=== PATIENT | male | born 1950 | race Caucasian/White ===

== ENCOUNTER 2017-03-26 19:51 | Emergency (ER) | payer MEDICARE, OTHER ==
[~2017-03-26] VITALS: Ht 172.7 cm; Wt 99.4 kg
[2017-03-26 19:56] VITALS: BP 133/95
[2017-03-26] MEDS ORDERED: HYDR-569 PO (21:20)
[2017-03-26] MEDS ORDERED: NAPR-56 PO (21:20)
[2017-03-26] MEDS ORDERED: amox tr/potassium clavulanate 875/125mg TAB PO ONE (21:20)
[2017-03-26] MEDS ORDERED: AMOX-422 PO (21:20)
== END 2017-03-26 21:40 | disposition home or self-care (01) ==
LOC: ER 19:52
DX: K04.7 Periapical abscess without sinus (principal); K02.9 Dental caries, unspecified; L03.119 Cellulitis of unspecified part of limb; I10 Essential (primary) hypertension; Z98.890 Other specified postprocedural states
CPT/HCPCS: 99283

== ENCOUNTER 2018-05-23 07:16 | Emergency (ER) | payer MEDICARE ==
[~2018-05-23] VITALS: Ht 172.7 cm; Wt 98.0 kg
[~2018-05-23 07:16] MED LIST: HYDR-4383 PO
[2018-05-23 07:18] VITALS: BP 141/91
[2018-05-23] MEDS ORDERED: AMOX875T2 PO (08:07)
== END 2018-05-23 08:09 | disposition home or self-care (01) ==
LOC: ER 07:17
DX: K08.89 Other specified disorders of teeth and supporting structures (principal); I10 Essential (primary) hypertension; Z79.899 Other long term (current) drug therapy
CPT/HCPCS: 99283

== ENCOUNTER 2019-12-19 06:23 | Emergency (ER) | payer MEDICARE ==
[~2019-12-19] VITALS: Ht 172.7 cm; Wt 90.0 kg
[2019-12-19 06:41] VITALS: BP 158/100
[2019-12-19] MEDS ORDERED: PENI500T2 PO (06:46)
== END 2019-12-19 06:55 | disposition home or self-care (01) ==
LOC: ER 06:24
DX: K04.7 Periapical abscess without sinus (principal); I10 Essential (primary) hypertension; Z98.890 Other specified postprocedural states; Z72.89 Other problems related to lifestyle; Z79.899 Other long term (current) drug therapy
CPT/HCPCS: 99283

== ENCOUNTER 2021-02-01 06:40 | Emergency (ER) | payer MEDICARE ==
[~2021-02-01] VITALS: Ht 172.7 cm; Wt 89.0 kg
[2021-02-01 06:46] VITALS: BP 152/94
[2021-02-01] MEDS ORDERED: LIDOcaine 1% w/epiNEPHrine 1:200,000 30ml vial IJ ONE (07:15)
[2021-02-01] MEDS ORDERED: LIDOcaine 1% W/epiNEPHrine 1:200,000 10ml vial IJ ONE (07:15)
[2021-02-01] MEDS ORDERED: LIDOcaine 1% W/epiNEPHrine 1:100,000 20ml vial IJ ONE (07:35)
--- NOTE | 2021-02-01 07:51 | NUR ---
lido given to provider at bedside
[2021-02-01] MEDS ORDERED: DOXY100C43 PO (08:08)
[2021-02-01] MEDS ORDERED: MUPI22OI30 TOP (08:08)
== END 2021-02-01 08:21 | disposition home or self-care (01) ==
LOC: ER 06:40
DX: L02.31 Cutaneous abscess of buttock (principal); I10 Essential (primary) hypertension; Z72.89 Other problems related to lifestyle; Z79.2 Long term (current) use of antibiotics; Z79.899 Other long term (current) drug therapy
CPT/HCPCS: 10060; 99283

== ENCOUNTER 2023-12-21 10:17 | Inpatient (IN) | payer MEDICARE ==
[~2023-12-21] VITALS: Ht 170.2 cm; Wt 50.8 kg
[2023-12-21 10:45] LABS: BASOPHILS % (AUTO) 0.5 % (0-1); EOSINOPHILS # (AUTO) 0.3 X10'3 (0-0.9); EOSINOPHILS % (AUTO) 3.5 % (0-6); HEMOGLOBIN 13.7 g/dl (14.0-17.9); MEAN CORPUSCULAR HEMOGLOBIN 30.8 PG (27.0-31.0); MEAN CORPUSCULAR HGB CONC 33.3 g/dL (33.0-36.5); MEAN CORPUSCULAR VOLUME 92.3 FL (78-98); MONOCYTES % (AUTO) 12.5 % (2-12); NEUTROPHILS # (AUTO) 4.5 X10'3 (1.8-7.7); NEUTROPHILS % (AUTO) 57.5 % (42-75); PLATELET COUNT 258 X10'3 (140-440); RED BLOOD COUNT 4.44 X10'6 (4.70-6.10); RED CELL DISTRIBUTION WIDTH 13.3 % (11.5-14.5); WHITE BLOOD COUNT 7.8 X10'3 (4.5-11.0)
[2023-12-21 10:56] LABS: APTT 24 SECONDS (22-32); INR 1.1 INR; PROTHROMBIN TIME 11.4 SECONDS (9.0-12.0)
[2023-12-21 10:58] LABS: ANION GAP 7 (8-16); BLOOD UREA NITROGEN 26 MG/DL (7-18); BUN/CREATININE RATIO 24.8 (10.0-20.0); CALCIUM 8.4 MG/DL (8.5-10.1); CHLORIDE 101 MMOL/L (99-107); CREATININE 1.05 MG/DL (0.60-1.10); GLUCOSE 89 MG/DL (70-104); POTASSIUM 4.3 MMOL/L (3.5-5.1); SODIUM 136 MMOL/L (135-145); TOTAL CARBON DIOXIDE 28.2 MMOL/L (24-32); eCRCL 45 ML/MIN; eGFR 69 ML/MIN
[2023-12-21] MEDS: aspirin 81mg tab.chew PO ONE (11:13)
[2023-12-21] MEDS: clopidogrel 300mg tablet PO ONE (11:16)
[2023-12-21] MEDS ORDERED: iohexol 350MG/ML 100ml bottle IV ONE (11:21)
[2023-12-21] MEDS ORDERED: morphine 2 MG/ML inj. syringe IV PRN ×2 (12:40)
[2023-12-21] MEDS ORDERED: acetaminophen 325mg tablet PO PRN ×2 (12:40)
[2023-12-21] MEDS ORDERED: HYDROcodone/acetaminophen 10/325mg tab PO PRN (12:40)
[2023-12-21] MEDS ORDERED: bisacodyl 10mg suppository rectal RC PRN (12:40)
[2023-12-21] MEDS ORDERED: acetaminophen 650mg rectal suppository RC PRN (12:40)
[2023-12-21] MEDS ORDERED: diphenhydrAMINE 50 mg/ml inj IV PRN (12:40)
[2023-12-21] MEDS ORDERED: magnesium hydroxide 30ml (MOM) UD suspension PO PRN (12:40)
[2023-12-21] MEDS ORDERED: diphenhydrAMINE 25mg capsule PO PRN (12:40)
[2023-12-21] MEDS ORDERED: mag hydrox/Alum hydrox/simeth 30ml oral suspension PO PRN (12:40)
[2023-12-21] MEDS ORDERED: ondansetron/PF 4mg/2ml inj IV PRN (12:40)
[2023-12-21] MEDS ORDERED: ondansetron 4mg rapidly disintigrating tab PO PRN (12:40)
[2023-12-21] MEDS ORDERED: HYDROcodone/acetaminophen 5mg/325mg tablet PO PRN (12:40)
[2023-12-21] MEDS: normal saline 1000ml 1,000 ML IV SCH (13:38)
[2023-12-21 14:22] LABS: MAGNESIUM 1.9 MG/DL (1.5-2.4); PHOSPHORUS 3.5 MG/DL (2.3-4.5); THYROID STIMULATING HORMONE 7.99 ulU/ml (0.34-4.50)
[2023-12-21 14:38] LABS: HEMOGLOBIN A1C 5.9 % (4.5-6.2)
[2023-12-21 14:52] LABS: BILIRUBIN,URINE NEGATIVE (Neg); CLARITY,URINE CLEAR (Clear); COLOR,URINE YELLOW (Yellow); GLUCOSE, URINE NEGATIVE (Neg); KETONES,URINE NEGATIVE (Neg); LEUKOCYTE ESTERASE ,URINE NEGATIVE (Neg); NITRITES, URINE NEGATIVE (Neg); OCCULT BLOOD,URINE NEGATIVE (Neg); PROTEIN,URINE NEGATIVE (Neg); UROBILINOGEN,URINE 0.2 E.U/dL (0.2-1.0)
[2023-12-21 14:53] LABS: UA COLLECTION TYPE URINAL
[2023-12-21] MEDS ORDERED: LEVO25TA7 PO (18:25)
[2023-12-21] MEDS ORDERED: SPIR25TA5 PO (18:25)
[2023-12-21] MEDS ORDERED: TERA5CAP4 PO (18:25)
[2023-12-21] MEDS ORDERED: XARELTO PO (18:25)
[2023-12-21] MEDS ORDERED: METO25TA6 PO (18:25)
[2023-12-21] MEDS: docusate sod 100mg capsule PO SCH (19:31)
[2023-12-21] MEDS: normal saline 500ml IV soln 500 ML IV STA (20:17)
[2023-12-21] MEDS ORDERED: temazepam 15mg capsule PO PRN (21:00)
[2023-12-22 06:59] LABS: BASOPHILS % (AUTO) 0.4 % (0-1); EOSINOPHILS # (AUTO) 0.3 X10'3 (0-0.9); EOSINOPHILS % (AUTO) 3.5 % (0-6); HEMATOCRIT 41.5 % (42.0-52.0); HEMOGLOBIN 13.6 g/dl (14.0-17.9); LYMPHOCYTES # (AUTO) 1.9 X10'3 (1.1-4.8); LYMPHOCYTES % (AUTO) 21.7 % (21-51); MEAN CORPUSCULAR HEMOGLOBIN 30.1 PG (27.0-31.0); MEAN CORPUSCULAR HGB CONC 32.7 g/dL (33.0-36.5); MEAN CORPUSCULAR VOLUME 92.1 FL (78-98); MEAN PLATELET VOLUME 9.2 FL (7.4-10.4); MONOCYTES # (AUTO) 0.9 X10'3 (0-0.9); MONOCYTES % (AUTO) 9.7 % (2-12); NEUTROPHILS # (AUTO) 5.7 X10'3 (1.8-7.7); NEUTROPHILS % (AUTO) 64.7 % (42-75); PLATELET COUNT 256 X10'3 (140-440); RED BLOOD COUNT 4.51 X10'6 (4.70-6.10); RED CELL DISTRIBUTION WIDTH 13.3 % (11.5-14.5); WHITE BLOOD COUNT 8.8 X10'3 (4.5-11.0)
[2023-12-22 07:13] LABS: ALANINE AMINOTRANSFERASE 21 U/L (12-78); ALBUMIN 2.8 G/DL (3.4-5.0); ALBUMIN/GLOBULIN RATIO 0.7 (1.1-1.5); ALKALINE PHOSPHATASE 73 IU/L (46-116); ANION GAP 9 (8-16); ASPARTATE AMINO TRANSFERASE 24 U/L (10-37); BILIRUBIN,TOTAL 0.8 MG/DL (0.1-1.0); BLOOD UREA NITROGEN 17 MG/DL (7-18); BUN/CREATININE RATIO 17.2 (10.0-20.0); CALCIUM 8.2 MG/DL (8.5-10.1); CHLORIDE 104 MMOL/L (99-107); CREATININE 0.99 MG/DL (0.60-1.10); GLUCOSE 93 MG/DL (70-104); SODIUM 138 MMOL/L (135-145); TOTAL CARBON DIOXIDE 25.4 MMOL/L (24-32); TOTAL PROTEIN 6.9 G/DL (6.4-8.2); eCRCL 48 ML/MIN; eGFR 74 ML/MIN
[2023-12-22 07:17] LABS: CHOL/HDL RATIO 3.6 (0.00-4.99); CHOLESTEROL 152 MG/DL (0-200); HDL CHOLESTEROL 42 MG/DL (35-60); LDL CHOLESTEROL 97 MG/DL (50-100); TRIGLYCERIDES 99 MG/DL (20-135)
[2023-12-22 07:40] VITALS: BP 127/87; PULSE 59; RESP 18; TEMP 97.2; O2SAT 98
[2023-12-22 08:00] VITALS: RESP 18; O2SAT 98
[2023-12-22] MEDS: aspirin 81mg, enteric-coated 1 TAB TABLET.DR PO SCH (08:28)
[2023-12-22] MEDS: pantoprazole 40mg Tablet.DR PO SCH (08:29)
[2023-12-22] MEDS: atorvastatin 20mg tablet PO SCH (08:29)
[2023-12-22] MEDS: clopidogrel 75mg tablet PO SCH (08:29)
[2023-12-22 10:21] LABS: D-DIMER 3.27 MG/L FEU (0-0.50)
[2023-12-22 10:39] VITALS: BP 140/83; PULSE 83; RESP 20; TEMP 98.3; O2SAT 90
[2023-12-22] MEDS ORDERED: APIX5TAB3 PO ×2 (16:23→16:31)
[2023-12-22] MEDS ORDERED: ATOR20TA66 PO (16:23)
[2023-12-22] MEDS ORDERED: LISI2.5T14 PO (16:23)
[2023-12-22] MEDS ORDERED: EMPA10TA PO (16:23)
[2023-12-22] MEDS ORDERED: ASPI81TA47 PO (16:23)
[2023-12-22] MEDS ORDERED: CLOP-32 PO (16:29)
[2023-12-22] MEDS ORDERED: carVEDilol 3.125mg tablet PO SCH (20:00)
[2023-12-23] MEDS ORDERED: lisinopril 2.5mg tablet PO SCH (08:00)
[2023-12-23] MEDS ORDERED: EMPAGLIFLOZIN 10 MG TABLET PO SCH (08:00)
[2023-12-23] MEDS ORDERED: spironolactone 25 MG tablet PO SCH (08:30)
== END 2023-12-22 17:05 | disposition home or self-care (01) | DRG 64 ==
LOC: ER 10:17 → ED HOLD 13:27 → ORTHO 4S 12-22 07:15
PROVIDERS: ADMIT Family Medicine; ATTEND Family Medicine
PROC: B3251ZZ Computerized Tomography (CT Scan) of Bilateral Common Carotid Arteries using Low Osmolar Contrast (ICD-10-PCS; principal; 2023-12-21)
PROC: B32G1ZZ Computerized Tomography (CT Scan) of Bilateral Vertebral Arteries using Low Osmolar Contrast (ICD-10-PCS; 2023-12-21)
PROC: B32R1ZZ Computerized Tomography (CT Scan) of Intracranial Arteries using Low Osmolar Contrast (ICD-10-PCS; 2023-12-21)
PROC: B3281ZZ Computerized Tomography (CT Scan) of Bilateral Internal Carotid Arteries using Low Osmolar Contrast (ICD-10-PCS; 2023-12-21)
DX: I63.511 Cerebral infarction due to unspecified occlusion or stenosis of right middle cerebral artery (principal); I21.4 Non-ST elevation (NSTEMI) myocardial infarction; E46 Unspecified protein-calorie malnutrition; Z68.1 Body mass index [BMI] 19.9 or less, adult; E78.5 Hyperlipidemia, unspecified; G89.4 Chronic pain syndrome; I11.0 Hypertensive heart disease with heart failure; I48.91 Unspecified atrial fibrillation; I50.9 Heart failure, unspecified; I73.9 Peripheral vascular disease, unspecified; Z87.891 Personal history of nicotine dependence; Z95.0 Presence of cardiac pacemaker
CPT/HCPCS: 36415; 70450; 70496; 70498; 70551; 71045; 80048; 80053; 80061; 81003; 83036; 83735; 83880; 84100; 84439; 84443; 84480; 84484; 85025; 85379; 85610; 85730; 87081; 93005; 93306; 99291; G0378; J7030; J7040; Q9967